=== PATIENT | male | born 1975 | race African-American/Black ===

== ENCOUNTER 2021-01-20 14:53 | Emergency (ER) | payer OTHER, SELFPAY ==
[2021-01-20] MEDS ORDERED: Acetaminophen 325 MG TAB ONE (16:14)
[2021-01-20] MEDS ORDERED: Ibuprofen 200 MG TAB ONE (16:14)
[2021-01-20] MEDS ORDERED: Diazepam 5 MG TAB ONE (16:14)
[2021-01-20] MEDS ORDERED: Gabapentin 300 MG CAP PO SCH (16:30)
== END 2021-01-20 17:15 | disposition home or self-care (01) ==
LOC: ERS 14:53
DX: M54.50 Low back pain, unspecified (principal); I10 Essential (primary) hypertension; F17.210 Nicotine dependence, cigarettes, uncomplicated
CPT/HCPCS: 99283